=== PATIENT | male | born 1935 | race Caucasian/White ===

== ENCOUNTER 2019-08-06 20:43 | Inpatient (IN) ==
[2019-08-06 22:00] LABS: Basophils % 0.1 % (0.0-0.8); Eosinophils # 0.1 10*3/uL (0.0-0.87); Eosinophils % 1.2 % (0.00-10.9); Hematocrit 35.8 VOL% (42.0-52.0); Hemoglobin 11.7 GM/DL (14.0-18.0); Immature Granulocytes % 0.6 %; Immature Granulocytes Absolute 0.04 #; Lymphocytes # 0.8 10*3/uL (1.4-4.0); Lymphocytes % 11.2 % (21.2-54.2); Mean Corpuscular HGB Conc 32.7 GM/DL (32-36); Mean Platelet Volume 10.9 FL (9.6-12.0); Monocytes % 4.7 % (1.7-12.7); Neutrophils % 82.2 % (38.7-73.9); Platelet Count 104 T/CUMM (130-400); Red Blood Count 3.69 MC/CUMM (3.8-5.5); Red Cell Distribution Width 15.8 % (9.3-17.3); White Blood Count 6.9 T/CUMM (4-12)
[2019-08-06] MEDS ORDERED: ZALEPLON 5 MG CAPSULE PO PRN (22:08)
[2019-08-06] MEDS ORDERED: ONDANSETRON 4 MG/2 ML VIAL IV PRN (22:08)
[2019-08-06] MEDS ORDERED: MORPHINE 4 MG/1 ML VIAL IV PRN (22:08)
[2019-08-06] MEDS ORDERED: guaiFENesin/DM ER 600-30 MG TABLET PO PRN (22:08)
[2019-08-06 22:13] LABS: Partial Thromboplastin Time 26.1 SECS (20.8-36.0)
[2019-08-06 22:17] LABS: Calcium 8.4 MG/DL (8.5-10.1); Osmolality,Calculated 287.1 MOS/KG (273-304)
[2019-08-06] MEDS ORDERED: DEXTROSE 5% NACL 0.9% 1,000 ML IV SCH (22:30)
[2019-08-07] MEDS ORDERED: MEPERIDINE 50 MG/1 ML VIAL IV PRN (02:49)
[2019-08-07 05:12] LABS: PT Patient Result 10.7 SECS (9.6-12.2); Partial Thromboplastin Time 26.2 SECS (20.8-36.0)
[2019-08-07 05:15] LABS: Basophils % 0.3 % (0.0-0.8); Eosinophils # 0.2 10*3/uL (0.0-0.87); Eosinophils % 2.5 % (0.00-10.9); Hematocrit 36.2 VOL% (42.0-52.0); Hemoglobin 11.7 GM/DL (14.0-18.0); Immature Granulocytes % 0.4 %; Immature Granulocytes Absolute 0.03 #; Lymphocytes # 1.5 10*3/uL (1.4-4.0); Lymphocytes % 21.8 % (21.2-54.2); Mean Corpuscular HGB Conc 32.3 GM/DL (32-36); Mean Corpuscular Volume 97.3 FL (87-102); Mean Platelet Volume 10.9 FL (9.6-12.0); Monocytes % 8.7 % (1.7-12.7); Neutrophils % 66.3 % (38.7-73.9); Platelet Count 108 T/CUMM (130-400); Red Blood Count 3.72 MC/CUMM (3.8-5.5); Red Cell Distribution Width 15.7 % (9.3-17.3); White Blood Count 6.8 T/CUMM (4-12)
[2019-08-07 05:35] LABS: Calcium 8.5 MG/DL (8.5-10.1); Osmolality,Calculated 280.5 MOS/KG (273-304)
[2019-08-07] MEDS ORDERED: ceFAZolin 2,000 MG in PREMIX 1 EACH IV ONE (07:25)
[2019-08-07] MEDS: amLODIPine 10 MG TABLET PO SCH ×2 (07:36→09:00)
[2019-08-07] MEDS ORDERED: BISACODYL 10 MG SUPP RECTAL PRN (08:30)
[2019-08-07] MEDS ORDERED: diphenhydrAMINE CAP 25 MG CAPSULE PO PRN (08:30)
[2019-08-07] MEDS ORDERED: PROMETHAZINE 25 MG/1 ML VIAL IM PRN (08:30)
[2019-08-07] MEDS ORDERED: LACTULOSE 20 GM/30 ML UDCUP PO PRN (08:30)
[2019-08-07] MEDS ORDERED: oxyCODONE IR 5 MG TABLET PO PRN (08:35)
[2019-08-07] MEDS ORDERED: MORPHINE 4 MG/1 ML VIAL IV PRN (08:36)
[2019-08-07] MEDS ORDERED: IBUPROFEN 400 MG TABLET PO PRN (08:36)
[2019-08-07] MEDS: DOCUSATE SODIUM 100 MG CAPSULE PO SCH ×2 (09:00→20:38)
[2019-08-07] MEDS ORDERED: LIDOCAINE 2% 5 ML VIAL ONE (10:01)
[2019-08-07] MEDS ORDERED: propofoL 200 MG/20 ML VIAL IV ONE (10:01)
[2019-08-07] MEDS ORDERED: SEVOFLURANE 1 UNIT/15 MINUTE INH ONE (10:01)
[2019-08-07] MEDS ORDERED: ePHEDrine 50 MG/ML AMP ONE (10:02)
[2019-08-07] MEDS ORDERED: PROMETHAZINE INJ 25 MG in SODIUM CHLORIDE 0.9% 50 ML IV PRN (10:02)
[2019-08-07] MEDS ORDERED: ONDANSETRON 4 MG/2 ML VIAL IV PRN (10:02)
[2019-08-07] MEDS: LACTATED RINGERS 1,000 ML IV SCH ×2 (10:02→20:37)
[2019-08-07] MEDS ORDERED: SUFentanil 50 MCG/ML AMP ONE (10:02)
[2019-08-07] MEDS ORDERED: DEXAMETHASONE 4 MG/1 ML VIAL ONE (10:02)
[2019-08-07] MEDS ORDERED: MEPERIDINE 25 MG/1 ML VIAL IV PRN (10:02)
[2019-08-07] MEDS ORDERED: ROCURONIUM 100 MG/10 ML VIAL IV ONE (10:03)
[2019-08-07] MEDS ORDERED: NEOSTIGMINE 10 MG/10 ML VIAL ONE (10:03)
[2019-08-07] MEDS ORDERED: LACTATED RINGERS 1,000 ML IV ONE (10:03)
[2019-08-07] MEDS ORDERED: TRANEXAMIC ACID 1,000 MG/10 ML VIAL ONE (10:03)
[2019-08-07] MEDS ORDERED: ONDANSETRON 4 MG/2 ML VIAL ONE (10:03)
[2019-08-07] MEDS ORDERED: ALBUTEROL INHALER 8 GM INH ONE (10:03)
[2019-08-07] MEDS ORDERED: ETOMIDATE 40 MG/20 ML VIAL IV ONE (10:03)
[2019-08-07] MEDS ORDERED: PHENYLEPHRINE 1 MG/10 ML SYRINGE IV ONE (10:03)
[2019-08-07] MEDS ORDERED: GLYCOPYRROLATE 0.4 MG/2 ML VIAL ONE (10:03)
[2019-08-07] MEDS: PANTOPRAZOLE 40 MG TABLET PO SCH (14:40)
[2019-08-07] MEDS: ceFAZolin 1,000 MG in SYRINGE 1 EACH IV SCH ×2 (14:40→22:28)
[2019-08-07] MEDS: oxyCODONE IR 5 MG TABLET PO PRN ×2 (17:15→22:28)
[2019-08-07] MEDS ORDERED: PHENOL 1.4% THROAT SPRAY 177 ML BOTTLE PO PRN (20:10)
[2019-08-07] MEDS ORDERED: BENZOCAINE/MENTHOL LOZENGE 18/BOX PO PRN (20:10)
[2019-08-07] MEDS: FONDAPARINUX 2.5 MG/0.5 ML SYRINGE SUBCUT SCH (20:37)
[2019-08-07] MEDS: SIMVASTATIN 20 MG TABLET PO SCH (20:38)
[2019-08-08 06:02] LABS: Basophils % 0.1 % (0.0-0.8); Eosinophils % 0.4 % (0.00-10.9); Hematocrit 30.6 VOL% (42.0-52.0); Hemoglobin 9.7 GM/DL (14.0-18.0); Immature Granulocytes % 0.8 %; Immature Granulocytes Absolute 0.06 #; Lymphocytes # 1.1 10*3/uL (1.4-4.0); Lymphocytes % 13.8 % (21.2-54.2); Mean Corpuscular HGB Conc 31.7 GM/DL (32-36); Mean Platelet Volume 10.9 FL (9.6-12.0); Monocytes % 9.6 % (1.7-12.7); Neutrophils % 75.3 % (38.7-73.9); Platelet Count 102 T/CUMM (130-400); Red Blood Count 3.09 MC/CUMM (3.8-5.5); Red Cell Distribution Width 15.9 % (9.3-17.3); White Blood Count 7.7 T/CUMM (4-12)
[2019-08-08 06:24] LABS: Calcium 8.2 MG/DL (8.5-10.1); Osmolality,Calculated 280.7 MOS/KG (273-304)
[2019-08-08] MEDS: DOCUSATE SODIUM 100 MG CAPSULE PO SCH ×2 (09:18→21:49)
[2019-08-08] MEDS: PANTOPRAZOLE 40 MG TABLET PO SCH (09:19)
[2019-08-08] MEDS: amLODIPine 10 MG TABLET PO SCH (09:19)
[2019-08-08] MEDS: oxyCODONE IR 5 MG TABLET PO PRN ×2 (10:45→17:07)
[2019-08-08] MEDS ORDERED: MAGNESIUM OXIDE 400 MG TABLET PO PRN (14:22)
[2019-08-08] MEDS ORDERED: NITROGLYCERIN SL 0.4 MG TABLET SL PRN (14:22)
[2019-08-08] MEDS ORDERED: NF- (Umeclidinium-Vilanterol [Anoro Ellipta] 1 inh) INH SCH (14:30)
[2019-08-08] MEDS: RANOLAZINE 500 MG TABLET PO SCH ×2 (16:11→21:49)
[2019-08-08] MEDS: LACTATED RINGERS 1,000 ML IV SCH (16:55)
[2019-08-08] MEDS: FONDAPARINUX 2.5 MG/0.5 ML SYRINGE SUBCUT SCH (19:27)
[2019-08-08] MEDS: TAMSULOSIN 0.4 MG CAPSULE PO SCH (21:49)
[2019-08-08] MEDS: MECLIZINE 25 MG TABLET PO SCH (21:49)
[2019-08-08] MEDS: SIMVASTATIN 20 MG TABLET PO SCH (21:49)
[2019-08-08] MEDS: NIACIN 500 MG TABLET PO SCH (21:50)
[2019-08-09] MEDS: LACTATED RINGERS 1,000 ML IV SCH ×5 (01:36→18:20)
[2019-08-09 06:18] LABS: Basophils % 0.5 % (0.0-0.8); Eosinophils # 0.2 10*3/uL (0.0-0.87); Eosinophils % 3.5 % (0.00-10.9); Hematocrit 26.8 VOL% (42.0-52.0); Hemoglobin 8.7 GM/DL (14.0-18.0); Immature Granulocytes % 0.5 %; Immature Granulocytes Absolute 0.03 #; Lymphocytes # 1.4 10*3/uL (1.4-4.0); Lymphocytes % 23.2 % (21.2-54.2); Mean Corpuscular HGB Conc 32.5 GM/DL (32-36); Mean Corpuscular Volume 98.5 FL (87-102); Mean Platelet Volume 11.6 FL (9.6-12.0); Monocytes % 10.3 % (1.7-12.7); Red Blood Count 2.72 MC/CUMM (3.8-5.5); Red Cell Distribution Width 15.7 % (9.3-17.3)
[2019-08-09 06:31] LABS: Platelet Count 84 T/CUMM (130-400)
[2019-08-09 06:38] LABS: Calcium 8.2 MG/DL (8.5-10.1); Osmolality,Calculated 284.3 MOS/KG (273-304)
[2019-08-09] MEDS: MECLIZINE 25 MG TABLET PO SCH ×2 (09:07→21:46)
[2019-08-09] MEDS: ASPIRIN EC 81 MG TABLET PO SCH (09:08)
[2019-08-09] MEDS: FINASTERIDE 5 MG TABLET PO SCH (09:08)
[2019-08-09] MEDS: amLODIPine 10 MG TABLET PO SCH (09:08)
[2019-08-09] MEDS: MULTIVITAMIN (BEROCCA) TABLET PO SCH (09:08)
[2019-08-09] MEDS: PANTOPRAZOLE 40 MG TABLET PO SCH (09:08)
[2019-08-09] MEDS: DOCUSATE SODIUM 100 MG CAPSULE PO SCH ×2 (09:08→21:46)
[2019-08-09] MEDS: RANOLAZINE 500 MG TABLET PO SCH ×2 (09:09→21:46)
[2019-08-09] MEDS: oxyCODONE IR 5 MG TABLET PO PRN (12:17)
[2019-08-09] MEDS: MAGNESIUM HYDROXIDE SUSP 30 ML UDCUP PO PRN (12:21)
[2019-08-09] MEDS: FONDAPARINUX 2.5 MG/0.5 ML SYRINGE SUBCUT SCH (19:22)
[2019-08-09] MEDS: SIMVASTATIN 20 MG TABLET PO SCH (21:46)
[2019-08-09] MEDS: TAMSULOSIN 0.4 MG CAPSULE PO SCH (21:46)
[2019-08-09] MEDS: NIACIN 500 MG TABLET PO SCH (21:46)
[2019-08-10] MEDS: LACTATED RINGERS 1,000 ML IV SCH ×2 (05:07→11:31)
[2019-08-10] MEDS: MAGNESIUM HYDROXIDE SUSP 30 ML UDCUP PO PRN (05:34)
[2019-08-10 06:28] LABS: Basophils % 0.2 % (0.0-0.8); Eosinophils # 0.1 10*3/uL (0.0-0.87); Eosinophils % 2.1 % (0.00-10.9); Hematocrit 25.7 VOL% (42.0-52.0); Hemoglobin 8.2 GM/DL (14.0-18.0); Immature Granulocytes % 0.5 %; Immature Granulocytes Absolute 0.02 #; Lymphocytes # 0.9 10*3/uL (1.4-4.0); Lymphocytes % 20.2 % (21.2-54.2); Mean Corpuscular HGB Conc 31.9 GM/DL (32-36); Mean Corpuscular Volume 99.6 FL (87-102); Mean Platelet Volume 11.7 FL (9.6-12.0); Monocytes % 7.4 % (1.7-12.7); Neutrophils % 69.6 % (38.7-73.9); Platelet Count 93 T/CUMM (130-400); Red Blood Count 2.58 MC/CUMM (3.8-5.5); Red Cell Distribution Width 14.9 % (9.3-17.3); White Blood Count 4.3 T/CUMM (4-12)
[2019-08-10 06:58] LABS: Platelet Estimate Decreased; Polychromasia Few
[2019-08-10] MEDS: oxyCODONE IR 5 MG TABLET PO PRN (07:02)
[2019-08-10 07:35] LABS: Calcium 8.4 MG/DL (8.5-10.1)
[2019-08-10] MEDS: FINASTERIDE 5 MG TABLET PO SCH (09:09)
[2019-08-10] MEDS: PANTOPRAZOLE 40 MG TABLET PO SCH (09:09)
[2019-08-10] MEDS: MECLIZINE 25 MG TABLET PO SCH (09:10)
[2019-08-10] MEDS: DOCUSATE SODIUM 100 MG CAPSULE PO SCH (09:10)
[2019-08-10] MEDS: RANOLAZINE 500 MG TABLET PO SCH (09:10)
[2019-08-10] MEDS: ASPIRIN EC 81 MG TABLET PO SCH (09:10)
[2019-08-10] MEDS: MULTIVITAMIN (BEROCCA) TABLET PO SCH (09:10)
[2019-08-10] MEDS: amLODIPine 10 MG TABLET PO SCH (09:20)
[2019-08-10 11:16] VITALS: BP 130/55
== END 2019-08-10 15:30 | DRG 470 ==
LOC: EDUNIT# → EDBD → N.ED 20:43 → SUATTDRO 22:08 → N.EDINP 22:08 → N.3E 22:45
PROVIDERS: ADMIT Internal Medicine; ATTEND Internal Medicine

== ENCOUNTER 2021-03-17 19:17 | Inpatient (IN) ==
[2021-03-17] MEDS ORDERED: LIDOCAINE 2% TOP JELLY 20 ML VIAL INTRAURETH ONE ×2 (21:09→21:34)
[2021-03-17] MEDS ORDERED: cefTRIAXone 1,000 MG in SODIUM CHLORIDE 0.9% 100 ML IV STA (21:56)
[2021-03-17 21:59] LABS: Basophils % 0.3 % (0.0-0.8); Eosinophils % 0.5 % (0.00-10.9); Hematocrit 32.4 VOL% (42.0-52.0); Immature Granulocytes Absolute 0.07 #; Lymphocytes # 1.1 10*3/uL (1.4-4.0); Lymphocytes % 14.4 % (21.2-54.2); Mean Corpuscular HGB Conc 30.9 GM/DL (32-36); Mean Corpuscular Volume 96.1 FL (87-102); Mean Platelet Volume 11.5 FL (9.6-12.0); Monocytes % 3.4 % (1.7-12.7); Neutrophils % 80.4 % (38.7-73.9); Platelet Count 153 T/CUMM (130-400); Red Blood Count 3.37 MC/CUMM (3.8-5.5); Red Cell Distribution Width 16.6 % (9.3-17.3); White Blood Count 7.3 T/CUMM (4-12)
[2021-03-17 22:15] LABS: PT Patient Result 10.9 SECS (10.5-12.0)
[2021-03-17] MEDS ORDERED: ONDANSETRON 4 MG/2 ML VIAL ONE (22:15)
[2021-03-17] MEDS ORDERED: HYDROmorphone 2 MG/1 ML VIAL ONE (22:16)
[2021-03-17] MEDS ORDERED: HYDROmorphone 2 MG/1 ML VIAL IV STA (22:17)
[2021-03-17] MEDS ORDERED: ONDANSETRON 4 MG/2 ML VIAL IV ONE (22:17)
[2021-03-17 22:22] LABS: Albumin 2.9 G/DL (3.4-5.0); Bilirubin,Total 0.5 MG/DL (0.20-1.00); Calcium 8.6 MG/DL (8.5-10.1); Osmolality,Calculated 285.4 MOS/KG (273-304); Total Protein 7.5 G/DL (6.4-8.2)
[2021-03-17 23:36] LABS: Bilirubin,Urine Negative (Negative); Blood, Urine Large mg/dL (Negative); Calcium Oxalate Crystals,Urine Moderate /HPF (Few); Glucose,Urine (UA) Negative (Negative); Ketones,Urine 5 mg/dL (Negative); Mucus,Urine Occasional /LPF (Occasional); Nitrite,Urine Negative (Negative); Protein,Urine 100 MG/DL; RBC,Urine 1688 /HPF (0-4); Urine Appearance CLOUDY (Clear); Urine Color Amber (Yellow); Urine Specific Gravity 1.015 (1.001-1.035); Urine Urobilinogen < 2.0 EU/DL (0.2-1.0)
[2021-03-18] MEDS ORDERED: NICOTINE 21 MG/24 HR PATCH TRANSDERM PRN (00:22)
[2021-03-18] MEDS ORDERED: ALBUTEROL/IPRATROPIUM 3 ML NEB RESP TX PRN (00:22)
[2021-03-18] MEDS ORDERED: GLUCAGON 1 MG VIAL IM PRN (00:22)
[2021-03-18] MEDS ORDERED: guaiFENesin/DM ER 600-30 MG TABLET PO PRN (00:22)
[2021-03-18] MEDS ORDERED: diphenhydrAMINE CAP 25 MG CAPSULE PO PRN (00:22)
[2021-03-18] MEDS ORDERED: DEXTROSE 50% 25 GM/50 ML VIAL IV PRN (00:22)
[2021-03-18] MEDS ORDERED: hydrALAZINE 20 MG/1 ML VIAL IV PRN (00:22)
[2021-03-18] MEDS ORDERED: ONDANSETRON 4 MG/2 ML VIAL IV PRN (00:22)
[2021-03-18] MEDS ORDERED: ZALEPLON 5 MG CAPSULE PO PRN (00:22)
[2021-03-18] MEDS ORDERED: DEXTROSE 5% NACL 0.9% 1,000 ML IV SCH (00:30)
[2021-03-18 05:41] LABS: Basophils % 0.2 % (0.0-0.8); Hematocrit 27.1 VOL% (42.0-52.0); Hemoglobin 8.4 GM/DL (14.0-18.0); Immature Granulocytes % 0.7 %; Immature Granulocytes Absolute 0.06 #; Lymphocytes # 0.8 10*3/uL (1.4-4.0); Lymphocytes % 9.3 % (21.2-54.2); Mean Corpuscular Volume 96.8 FL (87-102); Mean Platelet Volume 11.5 FL (9.6-12.0); Monocytes % 4.9 % (1.7-12.7); Neutrophils % 84.9 % (38.7-73.9); Platelet Count 124 T/CUMM (130-400); Red Cell Distribution Width 16.4 % (9.3-17.3); White Blood Count 8.8 T/CUMM (4-12)
[2021-03-18 05:52] LABS: Calcium 8.3 MG/DL (8.5-10.1); Osmolality,Calculated 282.7 MOS/KG (273-304)
[2021-03-18] MEDS: PANTOPRAZOLE 40 MG TABLET PO SCH (09:50)
[2021-03-18] MEDS: LACTATED RINGERS 1,000 ML IV SCH ×2 (09:50→18:41)
[2021-03-18] MEDS: ENOXAPARIN 30 MG/0.3 ML SYRINGE SUBCUT SCH (09:50)
[2021-03-18] MEDS: BACITRACIN OINT 0.9 GM PACK TOP SCH ×2 (15:51→21:52)
[2021-03-18] MEDS ORDERED: NITROGLYCERIN SL 0.4 MG TABLET SL PRN (16:05)
[2021-03-18] MEDS: cefTRIAXone 1,000 MG in SODIUM CHLORIDE 0.9% 100 ML IV SCH (21:52)
[2021-03-19] MEDS: LACTATED RINGERS 1,000 ML IV SCH ×2 (02:41→11:00)
[2021-03-19 05:41] LABS: Basophils % 0.5 % (0.0-0.8); Eosinophils # 0.1 10*3/uL (0.0-0.87); Eosinophils % 1.8 % (0.00-10.9); Hematocrit 23.4 VOL% (42.0-52.0); Hemoglobin 7.4 GM/DL (14.0-18.0); Immature Granulocytes % 0.5 %; Immature Granulocytes Absolute 0.02 #; Lymphocytes % 27.4 % (21.2-54.2); Mean Corpuscular HGB Conc 31.6 GM/DL (32-36); Mean Corpuscular Volume 96.7 FL (87-102); Monocytes % 4.7 % (1.7-12.7); Neutrophils % 65.1 % (38.7-73.9); Platelet Count 104 T/CUMM (130-400); Red Blood Count 2.42 MC/CUMM (3.8-5.5); Red Cell Distribution Width 16.3 % (9.3-17.3); White Blood Count 3.8 T/CUMM (4-12)
[2021-03-19 05:52] LABS: Calcium 7.8 MG/DL (8.5-10.1); Osmolality,Calculated 278.5 MOS/KG (273-304)
[2021-03-19 06:05] LABS: Risk Ratio 2.58
[2021-03-19] MEDS: PANTOPRAZOLE 40 MG TABLET PO SCH (09:27)
[2021-03-19] MEDS: BACITRACIN OINT 0.9 GM PACK TOP SCH ×3 (09:27→21:36)
[2021-03-19] MEDS: ENOXAPARIN 30 MG/0.3 ML SYRINGE SUBCUT SCH (09:29)
[2021-03-19 10:17] LABS: Basophils % 0.6 % (0.0-0.8); Eosinophils # 0.1 10*3/uL (0.0-0.87); Eosinophils % 1.2 % (0.00-10.9); Hematocrit 27.9 VOL% (42.0-52.0); Hemoglobin 8.5 GM/DL (14.0-18.0); Immature Granulocytes % 0.6 %; Immature Granulocytes Absolute 0.03 #; Lymphocytes # 0.9 10*3/uL (1.4-4.0); Lymphocytes % 19.3 % (21.2-54.2); Mean Corpuscular HGB Conc 30.5 GM/DL (32-36); Mean Corpuscular Volume 97.6 FL (87-102); Mean Platelet Volume 11.6 FL (9.6-12.0); Monocytes % 4.1 % (1.7-12.7); Neutrophils % 74.2 % (38.7-73.9); Platelet Count 124 T/CUMM (130-400); Red Blood Count 2.86 MC/CUMM (3.8-5.5); Red Cell Distribution Width 16.4 % (9.3-17.3); White Blood Count 4.8 T/CUMM (4-12)
[2021-03-19] MEDS: traMADol 50 MG TABLET PO PRN (11:19)
[2021-03-19] MEDS: guaiFENesin/DM ER 600-30 MG TABLET PO SCH (21:36)
[2021-03-19] MEDS: cefTRIAXone 1,000 MG in SODIUM CHLORIDE 0.9% 100 ML IV SCH (21:36)
[2021-03-20 05:33] LABS: Basophils % 0.3 % (0.0-0.8); Eosinophils # 0.1 10*3/uL (0.0-0.87); Eosinophils % 1.9 % (0.00-10.9); Hematocrit 26.5 VOL% (42.0-52.0); Hemoglobin 8.3 GM/DL (14.0-18.0); Immature Granulocytes % 1.2 %; Immature Granulocytes Absolute 0.07 #; Lymphocytes # 1.7 10*3/uL (1.4-4.0); Lymphocytes % 29.1 % (21.2-54.2); Mean Corpuscular HGB Conc 31.3 GM/DL (32-36); Mean Corpuscular Volume 95.7 FL (87-102); Mean Platelet Volume 11.8 FL (9.6-12.0); Monocytes % 6.7 % (1.7-12.7); Neutrophils % 60.8 % (38.7-73.9); Platelet Count 110 T/CUMM (130-400); Red Blood Count 2.77 MC/CUMM (3.8-5.5); White Blood Count 5.8 T/CUMM (4-12)
[2021-03-20 05:52] LABS: Hypochromasia 1+; Microcytosis 1+; Platelet Estimate Decreased
[2021-03-20 06:03] LABS: Osmolality,Calculated 270.1 MOS/KG (273-304); Potassium 4.9 MMOL/L (3.5-5.1)
[2021-03-20] MEDS: BACITRACIN OINT 0.9 GM PACK TOP SCH ×3 (09:27→20:27)
[2021-03-20] MEDS: PANTOPRAZOLE 40 MG TABLET PO SCH (09:28)
[2021-03-20] MEDS: guaiFENesin/DM ER 600-30 MG TABLET PO SCH ×2 (09:28→20:27)
[2021-03-20] MEDS: cefTRIAXone 1,000 MG in SODIUM CHLORIDE 0.9% 100 ML IV SCH (20:32)
[2021-03-21 05:41] LABS: Basophils % 0.2 % (0.0-0.8); Eosinophils # 0.1 10*3/uL (0.0-0.87); Eosinophils % 1.9 % (0.00-10.9); Hematocrit 27.6 VOL% (42.0-52.0); Hemoglobin 8.7 GM/DL (14.0-18.0); Immature Granulocytes % 0.9 %; Immature Granulocytes Absolute 0.04 #; Lymphocytes # 1.1 10*3/uL (1.4-4.0); Lymphocytes % 23.4 % (21.2-54.2); Mean Corpuscular HGB Conc 31.5 GM/DL (32-36); Mean Corpuscular Volume 94.5 FL (87-102); Mean Platelet Volume 11.7 FL (9.6-12.0); Monocytes % 5.7 % (1.7-12.7); Neutrophils % 67.9 % (38.7-73.9); Platelet Count 143 T/CUMM (130-400); Red Blood Count 2.92 MC/CUMM (3.8-5.5); Red Cell Distribution Width 15.8 % (9.3-17.3); White Blood Count 4.7 T/CUMM (4-12)
[2021-03-21 05:57] LABS: Calcium 8.2 MG/DL (8.5-10.1); Osmolality,Calculated 275.7 MOS/KG (273-304); Potassium 3.9 MMOL/L (3.5-5.1)
[2021-03-21 06:06] LABS: Eosinophils 2 % (0-10); Lymphocytes 21 % (20-55); Platelet Estimate Normal; Segmented Neutrophils 70 % (50-85); Total Cells Counted 100
[2021-03-21 06:07] LABS: Hypochromasia 1+; Microcytosis 1+
[2021-03-21] MEDS: BACITRACIN OINT 0.9 GM PACK TOP SCH ×3 (08:53→20:36)
[2021-03-21] MEDS: guaiFENesin/DM ER 600-30 MG TABLET PO SCH ×2 (08:53→20:36)
[2021-03-21] MEDS: PANTOPRAZOLE 40 MG TABLET PO SCH (08:53)
[2021-03-21] MEDS: traMADol 50 MG TABLET PO PRN (10:25)
[2021-03-21] MEDS: cefTRIAXone 1,000 MG in SODIUM CHLORIDE 0.9% 100 ML IV SCH (20:36)
[2021-03-22 06:09] LABS: Basophils % 0.4 % (0.0-0.8); Eosinophils # 0.1 10*3/uL (0.0-0.87); Eosinophils % 2.8 % (0.00-10.9); Hematocrit 27.6 VOL% (42.0-52.0); Hemoglobin 8.3 GM/DL (14.0-18.0); Immature Granulocytes Absolute 0.05 #; Lymphocytes # 1.6 10*3/uL (1.4-4.0); Lymphocytes % 31.6 % (21.2-54.2); Mean Corpuscular HGB Conc 30.1 GM/DL (32-36); Mean Corpuscular Volume 96.2 FL (87-102); Mean Platelet Volume 11.5 FL (9.6-12.0); Monocytes % 6.2 % (1.7-12.7); Platelet Count 152 T/CUMM (130-400); Red Blood Count 2.87 MC/CUMM (3.8-5.5); Red Cell Distribution Width 16.1 % (9.3-17.3)
[2021-03-22] MEDS: BACITRACIN OINT 0.9 GM PACK TOP SCH ×3 (09:49→20:53)
[2021-03-22] MEDS: PANTOPRAZOLE 40 MG TABLET PO SCH (09:49)
[2021-03-22] MEDS: guaiFENesin/DM ER 600-30 MG TABLET PO SCH ×2 (09:49→20:52)
[2021-03-22] MEDS ORDERED: propofoL 200 MG/20 ML VIAL IV ONE (11:23)
[2021-03-22] MEDS ORDERED: ETOMIDATE 40 MG/20 ML VIAL IV ONE (11:23)
[2021-03-22] MEDS ORDERED: fentaNYL 100 MCG/2 ML VIAL ONE (11:23)
[2021-03-22] MEDS ORDERED: LIDOCAINE 2% 5 ML VIAL ONE (11:23)
[2021-03-22] MEDS ORDERED: LACTATED RINGERS 1,000 ML IV SCH (11:30)
[2021-03-22] MEDS ORDERED: PHENYLEPHRINE 1 MG/10 ML SYRINGE IV ONE (12:40)
[2021-03-22] MEDS ORDERED: NEOMYCIN/POLYMYXIN/BACITRACIN OINT 28.4 GM TUBE TOP ONE (13:07)
[2021-03-22] MEDS ORDERED: ONDANSETRON 4 MG/2 ML VIAL ONE (13:23)
[2021-03-22] MEDS ORDERED: SEVOFLURANE 1 UNIT/15 MINUTE INH ONE (13:24)
[2021-03-22] MEDS: HYDROmorphone 2 MG/1 ML VIAL IV PRN (14:47)
[2021-03-22] MEDS: cefTRIAXone 1,000 MG in SODIUM CHLORIDE 0.9% 100 ML IV SCH (20:51)
[2021-03-22] MEDS ORDERED: SIMVASTATIN 20 MG TABLET PO SCH (21:00)
[2021-03-23] MEDS: HYDROmorphone 2 MG/1 ML VIAL IV PRN (02:54)
[2021-03-23 05:22] LABS: Basophils % 0.6 % (0.0-0.8); Eosinophils # 0.2 10*3/uL (0.0-0.87); Eosinophils % 3.1 % (0.00-10.9); Hematocrit 27.6 VOL% (42.0-52.0); Hemoglobin 8.4 GM/DL (14.0-18.0); Immature Granulocytes % 0.8 %; Immature Granulocytes Absolute 0.04 #; Lymphocytes # 1.5 10*3/uL (1.4-4.0); Lymphocytes % 30.9 % (21.2-54.2); Mean Corpuscular HGB Conc 30.4 GM/DL (32-36); Mean Corpuscular Volume 97.5 FL (87-102); Mean Platelet Volume 11.1 FL (9.6-12.0); Neutrophils % 58.6 % (38.7-73.9); Platelet Count 154 T/CUMM (130-400); Red Blood Count 2.83 MC/CUMM (3.8-5.5); Red Cell Distribution Width 16.1 % (9.3-17.3); White Blood Count 4.9 T/CUMM (4-12)
[2021-03-23 05:50] LABS: Eosinophils 3 % (0-10); Hypochromasia 1+; Lymphocytes 27 % (20-55); Microcytosis 1+; Platelet Estimate Adequate; Segmented Neutrophils 62 % (50-85); Total Cells Counted 100
[2021-03-23 06:13] LABS: Calcium 7.9 MG/DL (8.5-10.1); Osmolality,Calculated 275.8 MOS/KG (273-304); Potassium 4.8 MMOL/L (3.5-5.1)
[2021-03-23] MEDS ORDERED: ASPIRIN EC 81 MG TABLET PO SCH (09:00)
[2021-03-23] MEDS: PANTOPRAZOLE 40 MG TABLET PO SCH (09:12)
[2021-03-23] MEDS: guaiFENesin/DM ER 600-30 MG TABLET PO SCH (09:12)
[2021-03-23] MEDS: BACITRACIN OINT 0.9 GM PACK TOP SCH ×2 (10:21→16:40)
[2021-03-23 21:20] VITALS: BP 126/63
== END 2021-03-23 17:30 | disposition swing bed (61) | DRG 698 ==
LOC: N.4E 19:17 → N.ED 19:17 → N.4E 03-18 02:50 → N.3E 03-21 15:47
PROVIDERS: ADMIT Hospitalist; ATTEND Hospitalist

== ENCOUNTER 2021-04-20 10:37 | Inpatient (IN) ==
[2021-04-20 11:51] LABS: Basophils % 0.8 % (0.0-0.8); Eosinophils # 0.1 10*3/uL (0.0-0.87); Eosinophils % 2.2 % (0.00-10.9); Hematocrit 31.2 VOL% (42.0-52.0); Hemoglobin 9.9 GM/DL (14.0-18.0); Immature Granulocytes % 0.4 %; Immature Granulocytes Absolute 0.02 #; Lymphocytes # 1.6 10*3/uL (1.4-4.0); Lymphocytes % 31.2 % (21.2-54.2); Mean Corpuscular HGB Conc 31.7 GM/DL (32-36); Mean Corpuscular Volume 95.1 FL (87-102); Mean Platelet Volume 11.4 FL (9.6-12.0); Monocytes % 4.9 % (1.7-12.7); Neutrophils % 60.5 % (38.7-73.9); Platelet Count 199 T/CUMM (130-400); Red Blood Count 3.28 MC/CUMM (3.8-5.5); Red Cell Distribution Width 16.6 % (9.3-17.3); White Blood Count 5.1 T/CUMM (4-12)
[2021-04-20 12:15] LABS: PT Patient Result 11.1 SECS (10.5-12.0); Partial Thromboplastin Time 26.2 SECS (23.9-33.8)
[2021-04-20 12:20] LABS: Alanine Aminotransferase 16 U/L (16-61); Alkaline Phosphatase 78 U/L (45-117); Aspartate Amino Transferase 14 U/L (0-37); Bilirubin,Total < 0.39 MG/DL (0.20-1.00); Blood Urea Nitrogen 20 MG/DL (7-18); Calcium 8.4 MG/DL (8.5-10.1); Carbon Dioxide 25 MMOL/L (21-32); Estimated Glom Filtration Rate 43 ML/MIN; Glucose 96 MG/DL (74-106); Osmolality,Calculated 285.1 MOS/KG (273-304); Potassium 3.5 MMOL/L (3.5-5.1); Sodium 142 MMOL/L (136-145); Total Protein 7.2 G/DL (6.4-8.2)
[2021-04-20 12:21] LABS: Bacteria,Urine Many /HPF (Few); Bilirubin,Urine Negative (Negative); Blood, Urine Moderate mg/dL (Negative); Glucose,Urine (UA) Negative (Negative); Ketones,Urine Negative (Negative); Mucus,Urine Moderate /LPF (Occasional); Nitrite,Urine Negative (Negative); Protein,Urine >=500 MG/DL; RBC,Urine 486 /HPF (0-4); Urine Appearance CLOUDY (Clear); Urine Color Amber (Yellow); Urine Specific Gravity 1.019 (1.001-1.035); Urine Urobilinogen < 2.0 EU/DL (0.2-1.0)
[2021-04-20] MEDS ORDERED: cefTRIAXone 1,000 MG in SODIUM CHLORIDE 0.9% 100 ML IV STA (12:59)
[2021-04-20] MEDS ORDERED: GLUCAGON 1 MG VIAL IM PRN (14:02)
[2021-04-20] MEDS ORDERED: DEXTROSE 50% 25 GM/50 ML VIAL IV PRN (14:02)
[2021-04-20] MEDS: cefTRIAXone 1,000 MG in SODIUM CHLORIDE 0.9% 100 ML IV SCH (15:36)
[2021-04-20] MEDS: ENOXAPARIN 30 MG/0.3 ML SYRINGE SUBCUT SCH (15:38)
[2021-04-20] MEDS: DEXTROSE 5% NACL 0.45% 1,000 ML IV SCH (16:24)
[2021-04-20] MEDS: ROSUVASTATIN 20 MG TABLET PO SCH (21:19)
[2021-04-20] MEDS: RANOLAZINE 500 MG TABLET PO SCH (21:20)
[2021-04-20] MEDS: TAMSULOSIN 0.4 MG CAPSULE PO SCH (21:20)
[2021-04-20] MEDS: METOPROLOL TARTRATE 25 MG TABLET PO SCH (21:20)
[2021-04-21] MEDS: DEXTROSE 5% NACL 0.45% 1,000 ML IV SCH ×3 (03:22→14:15)
[2021-04-21 04:56] LABS: Basophils # 0.1 10*3/uL (0.0-0.2); Basophils % 1.3 % (0.0-0.8); Eosinophils # 0.1 10*3/uL (0.0-0.87); Eosinophils % 3.8 % (0.00-10.9); Hematocrit 25.3 VOL% (42.0-52.0); Immature Granulocytes % 0.3 %; Immature Granulocytes Absolute 0.01 #; Lymphocytes # 1.6 10*3/uL (1.4-4.0); Lymphocytes % 42.1 % (21.2-54.2); Mean Corpuscular HGB Conc 31.6 GM/DL (32-36); Mean Corpuscular Volume 94.8 FL (87-102); Mean Platelet Volume 11.7 FL (9.6-12.0); Neutrophils % 45.5 % (38.7-73.9); Platelet Count 142 T/CUMM (130-400); Red Blood Count 2.67 MC/CUMM (3.8-5.5); Red Cell Distribution Width 16.5 % (9.3-17.3); White Blood Count 3.7 T/CUMM (4-12)
[2021-04-21 05:07] LABS: Calcium 7.7 MG/DL (8.5-10.1); Osmolality,Calculated 284.3 MOS/KG (273-304); Potassium 3.6 MMOL/L (3.5-5.1)
[2021-04-21 05:17] LABS: Hypochromasia 1+; Microcytosis 1+; Platelet Estimate Adequate
[2021-04-21] MEDS: PANTOPRAZOLE 40 MG TABLET PO SCH (08:12)
[2021-04-21] MEDS: RANOLAZINE 500 MG TABLET PO SCH ×2 (08:12→21:31)
[2021-04-21] MEDS: METOPROLOL TARTRATE 25 MG TABLET PO SCH ×2 (08:12→21:31)
[2021-04-21] MEDS: ASPIRIN EC 81 MG TABLET PO SCH (08:12)
[2021-04-21] MEDS: ISOSORBIDE MONONITRATE 30 MG TABLET PO SCH (08:12)
[2021-04-21] MEDS: FINASTERIDE 5 MG TABLET PO SCH (08:12)
[2021-04-21] MEDS ORDERED: ZINC OXIDE PASTE 113 GM TUBE TOP PRN (10:48)
[2021-04-21] MEDS: ENOXAPARIN 30 MG/0.3 ML SYRINGE SUBCUT SCH (13:45)
[2021-04-21] MEDS: cefTRIAXone 1,000 MG in SODIUM CHLORIDE 0.9% 100 ML IV SCH (13:45)
[2021-04-21] MEDS: TAMSULOSIN 0.4 MG CAPSULE PO SCH (21:31)
[2021-04-21] MEDS: ROSUVASTATIN 20 MG TABLET PO SCH (21:31)
[2021-04-22] MEDS: DEXTROSE 5% NACL 0.45% 1,000 ML IV SCH ×6 (00:25→23:41)
[2021-04-22 06:00] LABS: Basophils % 0.7 % (0.0-0.8); Eosinophils # 0.1 10*3/uL (0.0-0.87); Eosinophils % 2.4 % (0.00-10.9); Hematocrit 23.7 VOL% (42.0-52.0); Hemoglobin 7.5 GM/DL (14.0-18.0); Immature Granulocytes % 0.7 %; Immature Granulocytes Absolute 0.02 #; Lymphocytes # 1.3 10*3/uL (1.4-4.0); Lymphocytes % 43.9 % (21.2-54.2); Mean Corpuscular HGB Conc 31.6 GM/DL (32-36); Mean Corpuscular Volume 94.4 FL (87-102); Mean Platelet Volume 11.3 FL (9.6-12.0); Monocytes % 5.7 % (1.7-12.7); Neutrophils % 46.6 % (38.7-73.9); Platelet Count 131 T/CUMM (130-400); Red Blood Count 2.51 MC/CUMM (3.8-5.5); Red Cell Distribution Width 16.2 % (9.3-17.3)
[2021-04-22 06:28] LABS: Folate 15.02 NG/ML (5.38-24.0)
[2021-04-22 06:30] LABS: % Iron Saturation 35.6 % (18-50); Calcium 7.8 MG/DL (8.5-10.1); Ferritin 162.7 ng/mL (26-388); Osmolality,Calculated 284.1 MOS/KG (273-304); Potassium 3.9 MMOL/L (3.5-5.1)
[2021-04-22] MEDS: ASPIRIN EC 81 MG TABLET PO SCH (09:11)
[2021-04-22] MEDS: PANTOPRAZOLE 40 MG TABLET PO SCH (09:12)
[2021-04-22] MEDS: ISOSORBIDE MONONITRATE 30 MG TABLET PO SCH (09:12)
[2021-04-22] MEDS: FINASTERIDE 5 MG TABLET PO SCH (09:12)
[2021-04-22] MEDS: RANOLAZINE 500 MG TABLET PO SCH ×2 (09:12→20:24)
[2021-04-22] MEDS: METOPROLOL TARTRATE 25 MG TABLET PO SCH ×2 (09:26→20:24)
[2021-04-22] MEDS: cefTRIAXone 1,000 MG in SODIUM CHLORIDE 0.9% 100 ML IV SCH (13:58)
[2021-04-22] MEDS: ENOXAPARIN 30 MG/0.3 ML SYRINGE SUBCUT SCH (14:02)
[2021-04-22] MEDS: CIPROFLOXACIN 500 MG TABLET PO SCH (20:24)
[2021-04-22] MEDS: TAMSULOSIN 0.4 MG CAPSULE PO SCH (20:24)
[2021-04-22] MEDS: ROSUVASTATIN 20 MG TABLET PO SCH (20:24)
[2021-04-23 06:23] LABS: Basophils % 0.6 % (0.0-0.8); Eosinophils # 0.1 10*3/uL (0.0-0.87); Eosinophils % 2.9 % (0.00-10.9); Hematocrit 26.3 VOL% (42.0-52.0); Hemoglobin 8.2 GM/DL (14.0-18.0); Immature Granulocytes % 0.9 %; Immature Granulocytes Absolute 0.03 #; Lymphocytes # 1.6 10*3/uL (1.4-4.0); Lymphocytes % 45.1 % (21.2-54.2); Mean Corpuscular HGB Conc 31.2 GM/DL (32-36); Mean Platelet Volume 11.9 FL (9.6-12.0); Monocytes % 7.3 % (1.7-12.7); Neutrophils % 43.2 % (38.7-73.9); Platelet Count 126 T/CUMM (130-400); Red Blood Count 2.74 MC/CUMM (3.8-5.5); Red Cell Distribution Width 16.6 % (9.3-17.3); White Blood Count 3.4 T/CUMM (4-12)
[2021-04-23 06:49] LABS: Calcium 7.9 MG/DL (8.5-10.1); Osmolality,Calculated 283.1 MOS/KG (273-304); Potassium 3.9 MMOL/L (3.5-5.1)
[2021-04-23 07:19] LABS: Anisocytosis 2+; Platelet Estimate Adequate
[2021-04-23 07:20] LABS: Burr Cells 1+; Macrocytosis 1+; Ovalocytes Few
[2021-04-23] MEDS: DEXTROSE 5% NACL 0.45% 1,000 ML IV SCH ×3 (07:24→22:00)
[2021-04-23] MEDS: ISOSORBIDE MONONITRATE 30 MG TABLET PO SCH (08:31)
[2021-04-23] MEDS: PANTOPRAZOLE 40 MG TABLET PO SCH (08:31)
[2021-04-23] MEDS: FINASTERIDE 5 MG TABLET PO SCH (08:31)
[2021-04-23] MEDS: RANOLAZINE 500 MG TABLET PO SCH ×2 (08:31→20:43)
[2021-04-23] MEDS: ASPIRIN EC 81 MG TABLET PO SCH (08:31)
[2021-04-23] MEDS: CIPROFLOXACIN 500 MG TABLET PO SCH ×2 (08:31→20:43)
[2021-04-23] MEDS: METOPROLOL TARTRATE 25 MG TABLET PO SCH ×2 (08:31→20:43)
[2021-04-23] MEDS ORDERED: MAGNESIUM SULF RIDER 2 GM/50 ML PREMIX IV ONE (09:37)
[2021-04-23] MEDS: ENOXAPARIN 30 MG/0.3 ML SYRINGE SUBCUT SCH (15:22)
[2021-04-23] MEDS: ROSUVASTATIN 20 MG TABLET PO SCH (20:42)
[2021-04-23] MEDS: TAMSULOSIN 0.4 MG CAPSULE PO SCH (20:43)
[2021-04-24 05:28] LABS: Basophils % 0.8 % (0.0-0.8); Eosinophils # 0.1 10*3/uL (0.0-0.87); Eosinophils % 2.3 % (0.00-10.9); Hematocrit 26.6 VOL% (42.0-52.0); Hemoglobin 8.5 GM/DL (14.0-18.0); Immature Granulocytes % 0.5 %; Immature Granulocytes Absolute 0.02 #; Lymphocytes # 1.1 10*3/uL (1.4-4.0); Lymphocytes % 29.4 % (21.2-54.2); Mean Platelet Volume 11.3 FL (9.6-12.0); Monocytes % 6.4 % (1.7-12.7); Neutrophils % 60.6 % (38.7-73.9); Platelet Count 134 T/CUMM (130-400); Red Cell Distribution Width 16.4 % (9.3-17.3); White Blood Count 3.9 T/CUMM (4-12)
[2021-04-24 05:44] LABS: Calcium 7.8 MG/DL (8.5-10.1); Osmolality,Calculated 280.4 MOS/KG (273-304)
[2021-04-24 05:48] LABS: Risk Ratio 2.56
[2021-04-24] MEDS: DEXTROSE 5% NACL 0.45% 1,000 ML IV SCH ×3 (06:47→23:30)
[2021-04-24] MEDS: PANTOPRAZOLE 40 MG TABLET PO SCH (09:44)
[2021-04-24] MEDS: ASPIRIN EC 81 MG TABLET PO SCH (09:44)
[2021-04-24] MEDS: FINASTERIDE 5 MG TABLET PO SCH (09:45)
[2021-04-24] MEDS: CIPROFLOXACIN 500 MG TABLET PO SCH ×2 (09:45→20:43)
[2021-04-24] MEDS: ISOSORBIDE MONONITRATE 30 MG TABLET PO SCH (09:45)
[2021-04-24] MEDS: METOPROLOL TARTRATE 25 MG TABLET PO SCH ×2 (09:45→20:43)
[2021-04-24] MEDS: RANOLAZINE 500 MG TABLET PO SCH ×2 (09:46→20:43)
[2021-04-24] MEDS: ENOXAPARIN 30 MG/0.3 ML SYRINGE SUBCUT SCH (16:07)
[2021-04-24] MEDS: TAMSULOSIN 0.4 MG CAPSULE PO SCH (20:42)
[2021-04-24] MEDS: ROSUVASTATIN 20 MG TABLET PO SCH (20:43)
[2021-04-25] MEDS: DEXTROSE 5% NACL 0.45% 1,000 ML IV SCH ×5 (04:03→22:48)
[2021-04-25] MEDS: METOPROLOL TARTRATE 25 MG TABLET PO SCH ×2 (09:40→21:20)
[2021-04-25] MEDS: ISOSORBIDE MONONITRATE 30 MG TABLET PO SCH (09:40)
[2021-04-25] MEDS: PANTOPRAZOLE 40 MG TABLET PO SCH (09:40)
[2021-04-25] MEDS: ASPIRIN EC 81 MG TABLET PO SCH (09:40)
[2021-04-25] MEDS: CIPROFLOXACIN 500 MG TABLET PO SCH ×2 (09:40→21:21)
[2021-04-25] MEDS: FINASTERIDE 5 MG TABLET PO SCH (09:40)
[2021-04-25] MEDS: RANOLAZINE 500 MG TABLET PO SCH ×2 (09:41→21:20)
[2021-04-25] MEDS: ENOXAPARIN 30 MG/0.3 ML SYRINGE SUBCUT SCH (14:32)
[2021-04-25] MEDS: TAMSULOSIN 0.4 MG CAPSULE PO SCH (21:20)
[2021-04-25] MEDS: ROSUVASTATIN 20 MG TABLET PO SCH (21:20)
[2021-04-26] MEDS: DEXTROSE 5% NACL 0.45% 1,000 ML IV SCH (06:00)
[2021-04-26 08:40] VITALS: BP 142/56
[2021-04-26] MEDS: RANOLAZINE 500 MG TABLET PO SCH (09:25)
[2021-04-26] MEDS: FINASTERIDE 5 MG TABLET PO SCH (09:25)
[2021-04-26] MEDS: ISOSORBIDE MONONITRATE 30 MG TABLET PO SCH (09:25)
[2021-04-26] MEDS: PANTOPRAZOLE 40 MG TABLET PO SCH (09:26)
[2021-04-26] MEDS: METOPROLOL TARTRATE 25 MG TABLET PO SCH (09:26)
[2021-04-26] MEDS: ASPIRIN EC 81 MG TABLET PO SCH (09:26)
[2021-04-26] MEDS: CIPROFLOXACIN 500 MG TABLET PO SCH (09:26)
== END 2021-04-26 11:00 | disposition home or self-care (01) | DRG 64 ==
LOC: N.EDINP 10:37 → N.ED 10:37 → SUATTDRO 14:02 → N.3E 16:21
PROVIDERS: ADMIT Internal Medicine; ATTEND Internal Medicine